=== PATIENT | male | born 1940 | race Caucasian/White ===

== ENCOUNTER → 2017-03-06 | Outpatient (CLI) | payer MEDICARE, OTHER ==
--- NOTE | 2017-03-06 14:58 | RADRPT ---
PROCEDURE: XR Right hip and pelvis. CLINICAL INDICATION: Right hip pain and pelvic pain. TECHNIQUE: 3 views. Frontal pelvis. Frontal and lateral right hip. COMPARISON: None. FINDINGS: There is no fracture or dislocation. The soft tissues are normal. There are degenerative changes of the hips with joint space narrowing and osteophytes. Right is wors e than left. There is no lytic or blastic lesion. Surgical clips are present in the pelvis. IMPRESSION: 1. 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 2. Prior pelvic surgery. RPTAT: QQ .Grady Casas MD, MD Date Time Electronically viewed and signed by .Grady Casas MD, MD on 03/06/2017 14:58 .R/
--- NOTE | 2017-03-06 14:59 | RADRPT ---
PROCEDURE: Right knee radiographs. CLINICAL INDICATION: Right knee pain. TECHNIQUE: Four views. Weight bearing. Frontal, lateral, oblique, and patellar view. COMPARISON: No prior studies are available for comparison. FINDINGS: There is no fracture or dislocation. Vascular calcifications are present consistent with atherosclerosis. Articular surfaces are intact. There is no lytic or blastic lesion. There is no radiopaque foreign body. IMPRESSION: 1. Atherosclerosis. 2. Otherwise unremarkable images of the right knee. RPTAT: QQ .Grady Casas MD, MD Date Time Electronically viewed and signed by .Grady Casas MD, on 03/06/2017 14:58 .R/
== END | disposition home or self-care (01) ==
LOC: HKI 14:34
PROVIDERS: ATTEND Orthopaedic Surgery
DX: M25.561 Pain in right knee (principal); M25.551 Pain in right hip; R10.2 Pelvic and perineal pain
CPT/HCPCS: 73502